=== PATIENT | female | born 2000 | race Caucasian/White ===

== ENCOUNTER → 2020-01-04 11:28 | Outpatient (CLI) | payer OTHER, SELFPAY ==
[2020-01-04 13:48] LABS: Urine N gonorrhoeae NOT DETECTED
[2020-01-04 14:08] LABS: Urine Chlamydia NOT DETECTED
[2020-01-04 20:45] LABS: Hepatitis B Surface Antigen NEGATIVE s/c (NEGATIVE)
[2020-01-04 20:51] LABS: HIV 1 & 2 Ab/Ag 4th Gen Combo NEGATIVE (NEGATIVE); Hep C Virus Ab w/Reflex Quant NEGATIVE s/c (NEGATIVE)
[2020-01-05 05:45] LABS: RPR Screen Non Reactive (Non Reactive)
== END ==
PROVIDERS: PCP Family Medicine; Referring Provider Family Medicine; Visit Provider Family Medicine
DX: Z11.3 Encounter for screening for infections with a predominantly sexual mode of transmission (principal)
CPT/HCPCS: 36415; 86592; 86803; 87340; 87389; 87491; 87591

== ENCOUNTER → 2020-07-25 13:35 | Outpatient (CLI) | payer OTHER, SELFPAY ==
[2020-07-25] MEDS: COVID-19 VACC #1, MRNA(MOD) 100 MCG/0.5 ML VIAL IM (13:37)
== END ==
PROVIDERS: PCP Family Medicine; Visit Provider Internal Medicine
DX: Z23 Encounter for immunization (principal)
CPT/HCPCS: 0011A; 91301

== ENCOUNTER → 2020-08-24 12:44 | Outpatient (CLI) | payer OTHER, SELFPAY ==
[2020-08-24] MEDS: COVID-19 VACC #2, MRNA(MOD) 100 MCG/0.5 ML VIAL IM (12:48)
== END ==
PROVIDERS: PCP Family Medicine; Visit Provider Internal Medicine
DX: Z23 Encounter for immunization (principal)
CPT/HCPCS: 0012A; 91301

== ENCOUNTER 2020-09-23 19:56 | Emergency (ER) | payer OTHER, SELFPAY ==
[2020-09-23 20:05] VITALS: BP 116/73; PULSE 88; RESP 16; TEMP 36.6; O2SAT 100
[2020-09-23] MEDS: BACITRACIN OINT 0.9 GM PCKT 1 APPLIC TOP (20:17)
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
[2020-09-23] MEDS: LIDOCAINE/PRILOCAINE 5 GM TOP (20:55)
[2020-09-23] MEDS: TET,DIPH,PERTUSS(ACELL),VAC/PF 0.5 ML SYRINGE IM (20:55)
== END 2020-09-23 21:41 | disposition home or self-care (01) ==
PROVIDERS: Emergency Provider Emergency Medicine; PCP Family Medicine
DX: S01.111A Laceration without foreign body of right eyelid and periocular area, initial encounter (principal); S00.83XA Contusion of other part of head, initial encounter; S70.312A Abrasion, left thigh, initial encounter; S80.211A Abrasion, right knee, initial encounter; W22.09XA Striking against other stationary object, initial encounter; Y93.55 Activity, bike riding; Z23 Encounter for immunization
CPT/HCPCS: 12051; 90471; 99283; 99284; 90715

== ENCOUNTER → 2022-02-17 10:53 | Outpatient (CLI) | payer OTHER, SELFPAY ==
[2022-02-17 13:51] LABS: Influenza A - CEPHEID Flu A NEGATIVE (NEGATIVE); Influenza B - CEPHEID Flu B NEGATIVE (NEGATIVE); Respiratory Syncytial Virus Negative (Negative)
[2022-02-17 14:01] LABS: COVID-19 CEPHEID 4-PLEX PCR Negative (Negative)
== END ==
PROVIDERS: PCP Family Medicine; Visit Provider Physician Assistant Medical
DX: R05.9 Cough, unspecified (principal)
CPT/HCPCS: 0241U

== ENCOUNTER → 2022-02-24 16:24 | Outpatient (CLI) | payer OTHER, SELFPAY | PROVIDERS: PCP Family Medicine; Visit Provider Registered Nurse | DX: J02.9 Acute pharyngitis, unspecified (principal) | CPT/HCPCS: 87070 ==